=== PATIENT | female | born 2000 | race Caucasian/White ===

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

== ENCOUNTER → 2022-04-26 10:11 | Outpatient (BNVA) | payer MEDICAID, SELFPAY | PROVIDERS: PCP Family Medicine; Visit Provider Nurse Practitioner Women's Health | DX: Z11.3 Encounter for screening for infections with a predominantly sexual mode of transmission (principal); N89.8 Other specified noninflammatory disorders of vagina | CPT/HCPCS: 86592; 86803; 87340; 87491; 87529; 87591; 87661; 87806 ==

== ENCOUNTER → 2022-05-18 10:26 | Outpatient (BNVA) | payer MEDICAID, SELFPAY | PROVIDERS: PCP Family Medicine; Visit Provider Nurse Practitioner Women's Health | DX: Z32.00 Encounter for pregnancy test, result unknown (principal); Z34.90 Encounter for supervision of normal pregnancy, unspecified, unspecified trimester; A60.00 Herpesviral infection of urogenital system, unspecified; R10.9 Unspecified abdominal pain | CPT/HCPCS: 81025; 84315; 87086 ==

== ENCOUNTER → 2022-06-22 15:25 | Outpatient (BNVA) | payer MEDICAID, SELFPAY | PROVIDERS: PCP Family Medicine; Visit Provider Obstetrics & Gynecology | DX: Z34.90 Encounter for supervision of normal pregnancy, unspecified, unspecified trimester (principal); B37.31 Acute candidiasis of vulva and vagina | CPT/HCPCS: 80307; 84315; 87077; 87086; 87184 ==

== ENCOUNTER → 2022-06-23 07:50 | Outpatient (BNVA) | payer MEDICAID, SELFPAY | PROVIDERS: PCP Family Medicine; Visit Provider Obstetrics & Gynecology | DX: Z34.90 Encounter for supervision of normal pregnancy, unspecified, unspecified trimester (principal) | CPT/HCPCS: 84443; 85027; 86762; 86850; 86900 ==

== ENCOUNTER → 2022-09-12 14:00 | Outpatient (BNVA) | payer MEDICAID, SELFPAY | PROVIDERS: PCP Family Medicine; Visit Provider Nurse Practitioner Women's Health | DX: Z34.90 Encounter for supervision of normal pregnancy, unspecified, unspecified trimester (principal) | CPT/HCPCS: 84315; 84443 ==

== ENCOUNTER → 2022-10-03 09:39 | Outpatient (BNVA) | payer MEDICAID, SELFPAY | PROVIDERS: PCP Family Medicine; Visit Provider Obstetrics & Gynecology | DX: Z34.90 Encounter for supervision of normal pregnancy, unspecified, unspecified trimester (principal); Z3A.00 Weeks of gestation of pregnancy not specified | CPT/HCPCS: 84315; 85025; 86850 ==

== ENCOUNTER → 2022-10-06 09:06 | Outpatient (BNVA) | payer MEDICAID, SELFPAY | PROVIDERS: PCP Family Medicine; Visit Provider Obstetrics & Gynecology | DX: Z34.90 Encounter for supervision of normal pregnancy, unspecified, unspecified trimester (principal) | CPT/HCPCS: 82950 ==

== ENCOUNTER → 2022-10-17 08:08 | Outpatient (BNVA) | payer MEDICAID, SELFPAY | PROVIDERS: PCP Family Medicine; Visit Provider Obstetrics & Gynecology | DX: Z34.90 Encounter for supervision of normal pregnancy, unspecified, unspecified trimester (principal) | CPT/HCPCS: 81000 ==

== ENCOUNTER 2022-11-03 09:25 | Outpatient (CLI) | payer MEDICAID, SELFPAY ==
[2022-11-03 09:39] VITALS: BP 129/84; PULSE 97
[2022-11-03 09:54] VITALS: BP 123/74; PULSE 85
[2022-11-03 09:56] VITALS: BMI 23.2
[2022-11-03 10:09] VITALS: BP 118/69; PULSE 81
[2022-11-03 10:12] LABS: Basophils % 0.1 %; Eosinophils # 0.1 10^3/uL (0.0-0.8); Eosinophils % 1.5 %; Hematocrit 32.7 % (37.0-47.0); Hemoglobin 10.4 g/dL (11.5-15.3); Lymphocytes # 1.5 10^3/uL (1.5-6.5); Lymphocytes % 17.7 %; Mean Corpuscular HGB Conc 31.8 g/dL (30.0-36.0); Mean Corpuscular Hemoglobin 29.6 pg (28.0-34.0); Mean Corpuscular Volume 93.2 fl (81-99); Mean Platelet Volume 10.4 fL (7.4-10.4); Monocytes # 0.5 10^3/uL (0.2-0.9); Neutrophils # 6.41 10^3/uL (1.8-8.0); Nucleated Red Blood Cells % 0 %; Platelet Count 260 10^3/cmm (130-400); Red Blood Count 3.51 10^6/uL (4.1-5.3); Red Cell Distribution Width 12.2 % (12.1-15.1); White Blood Count 8.7 10^3/uL (4.5-13.0)
[2022-11-03 10:23] LABS: Add Urine Culture? Yes; Add Urine Microscopic? YES; Bacteria Urine 1+ /hpf; Bilirubin Urine Neg (Negative); Blood Urine Neg (Negative); Glucose Urine UA Norm (Normal); Ketones Urine Negative (Negative); Leukocyte Esterase Urine 2+ (Negative); Nitrate Urine Negative (Negative); Protein Urine Neg (Negative); RBC Urine 15-25 /hpf (0-2); Specific Gravity, Urine 1.005 (1.005-1.030); Urine Appearance SL Hazy (CLEAR); Urine Color Yellow (Yellow); Urobilinogen Urine Neg (Negative); pH Urine 7 (5-7)
[2022-11-03 10:24] VITALS: BP 116/67; PULSE 71
[2022-11-03 10:29] LABS: Alanine Aminotransferase 29 U/L (0-33); Albumin Level 3.6 g/dL (3.5-5.2); Alkaline Phosphatase 81 U/L (35-105); Anion Gap 14.8 (5-19); Aspartate Amino Transferase 26 U/L (0-32); Blood Urea Nitrogen 7 mg/dL (6-20); Calcium 9.2 mg/dL (8.5-10.5); Carbon Dioxide 22 mmol/L (22-29); Chloride 103 mmol/L (98-107); Creatinine Clr Calc Pharmacy 150.4568; Globulin 2.8 g/dL (1.3-4.6); Glomerular Filtration Rate 157.3 mL/min (90-130); Glucose 74 mg/dL (65-115); Osmolality Calculated 279 mOsm/kg (285-295); Potassium 3.8 mmol/L (3.5-5.1); Sodium 136 mmol/L (136-145); Total Bilirubin 0.2 mg/dL (0.15-1.2); Total Protein 6.4 g/dL (6.6-8.7); Uric Acid 3.2 mg/dL (2.4-5.7)
[2022-11-03 10:32] LABS: Urine Creatinine 17 mg/dL (28-217); Urine Protein Random 4 mg/dL
[2022-11-03 10:33] LABS: UPRO/UCREAT Ratio 0.24 mg/mg CR
[2022-11-03 10:39] VITALS: BP 117/65; PULSE 81
[2022-11-03 10:54] VITALS: BP 114/65; PULSE 75
== END 2022-11-03 11:00 | disposition home or self-care (01) ==
LOC: OPOB 09:25 → OBGYN 09:26
PROVIDERS: PCP Family Medicine; Visit Provider Obstetrics & Gynecology
DX: O16.9 Unspecified maternal hypertension, unspecified trimester (principal); Z3A.00 Weeks of gestation of pregnancy not specified
CPT/HCPCS: 36415; 59025; 80053; 81001; 82570; 84156; 84315; 84550; 85025; 87086; 99211

== ENCOUNTER → 2022-11-10 10:57 | Outpatient (BNVA) | payer MEDICAID, SELFPAY | PROVIDERS: PCP Family Medicine; Visit Provider Obstetrics & Gynecology | DX: Z34.80 Encounter for supervision of other normal pregnancy, unspecified trimester (principal) | CPT/HCPCS: 84315; 87086 ==

== ENCOUNTER → 2022-11-16 08:40 | Outpatient (BNVA) | payer MEDICAID, SELFPAY | PROVIDERS: PCP Family Medicine; Visit Provider Obstetrics & Gynecology | DX: Z34.90 Encounter for supervision of normal pregnancy, unspecified, unspecified trimester (principal); R82.90 Unspecified abnormal findings in urine | CPT/HCPCS: 84315; 84443; 85025; 87086 ==

== ENCOUNTER 2024-09-12 00:02 | Observation (INO) | payer MEDICAID, SELFPAY ==
[2024-09-12] VITALS (141 sets, daily range): BP systolic 72–106; BP diastolic 37–63; PULSE 76–122; RESP 15–23; TEMP 36.4–36.9; O2SAT 93–100; BMI 19.5
--- NOTE | 2024-09-12 00:11 | ECG_ITS ---
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 Measurements Intervals [place] Rate: 88 P: 64 MS: 144 QRS: 49 QRSD: 86 T: 89 QT: 395 QTc: 480 Interpretive Statements SINUS RHYTHM LOW QRS VOLTAGE IN PRECORDIAL LEADS [QRS DEFLECTION < 1.0 mV IN CHEST LEADS] POSSIBLE ANTERIOR MYOCARDIAL INFARCTION , PROBABLY OLD [30 ms Q WAVE IN V3/V4, OR R < 0.2 mV IN V4] No previous ECG available for comparison Electronically Signed On 09-12-2024 22:22:24 CDT by Meredith Contreras M.D. [email or web address] [id number]
--- NOTE | 2024-09-12 00:17 | CTR_ITS ---
PROCEDURE INFORMATION: Exam: CT Head Without Contrast Exam date and time: 09/12/2024 1:42 AM Age: 24 years old Clinical indication: Syncope and collapse and other: Possible seizure; Additional info: 1 week seizure, no history of epilepsy TECHNIQUE: Imaging protocol: Computed tomography of the head without contrast. Radiation optimization: All CT scans at this facility use at least one of these dose optimization techniques: automated exposure control; mA and/or kV adjustment per patient size (includes targeted exams where dose is matched to clinical indication); or iterative reconstruction. COMPARISON: CT head wo con* [id number] 10/18/2019 9:50 PM RADIATION DOSE METRICS: Total DLP (mGy-cm): 1134.98 FINDINGS: Brain: No focal hemorrhage or midline shift is identified. Cerebral ventricles: No ventriculomegaly or evidence of acute hydrocephalus. Paranasal sinuses: The partially assessed sinuses are grossly clear. Mastoid air cells: Visualized mastoid air cells are well aerated. Bones: Unremarkable. No acute fracture. Soft tissues: Unremarkable. CT/CT head wo con* [id number] IMPRESSION: No acute intracranial abnormality.
--- NOTE | 2024-09-12 00:17 | XRR_ITS ---
PROCEDURE INFORMATION: Exam: XR Chest Exam date and time: 09/12/2024 12:27 AM Age: 24 years old Clinical indication: Other: Seizure TECHNIQUE: Imaging protocol: Radiologic exam of the chest. Views: 1 view. COMPARISON: CR XR chest 1V portable [id number] 10/18/2019 8:45 PM FINDINGS: Lungs: Unremarkable. No consolidation. Pleural spaces: Unremarkable. No pleural effusion. No pneumothorax. Heart/Mediastinum: Unremarkable. No cardiomegaly. Bones/joints: Unremarkable. XR/XR chest 1V portable [id number] IMPRESSION: No acute findings.
--- NOTE | 2024-09-12 00:19 | ED_ITS ---
HPI - Seizure 2 General: Chief Complaint: Seizure Stated Complaint: possible seizures Time Seen by Provider: 09/12/24 00:03 History of Present Illness: HPI Narrative: Patient presents to the ER via [facility] from home with possible tonic- clonic type seizure. Patient is 1 week patient's states that she was going to the bathroom she began to shake violently and a tonic-clonic type seizure. Patient was found unresponsive with a low blood pressure. This is patient's second and delivery, no complications were noted per EMS. Patient delivered approximately 1 week ago [address] [place]. 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 Seizure History: No Related Data Previous Rx's ?Medication ?Instructions ?Recorded levothyroxine 75 mcg tablet 75 mcg PO DAILY #60 tabs 0 06/24/22 Allergies Allergy/AdvReac Type Severity Reaction Status Date / Time No Known Allergies Allergy Verified 09/12/24 00:14 Review of Systems 2 General: Reports: 10 or more systems reviewed and unremarkable except in HPI and below PFSH ED 2 PFSH: Medical History No pertinent past medical history neghx: htn,dm,thyroid,dvt/pe PCP: Pamela Win Surgical History No pertinent past surgical history Family History Mother Thyroid disease Denies family history of Colon cancer Ovarian cancer Diabetes Heart disease Hypercholesteremia Breast cancer Hypertension Uterine cancer Stroke Social History Substance/Drug Use: never Physical Exam 2 Const: COMMON NORMALS: no acute distress, average body habitus, patient oriented x3, no limitations, healthy appearing, alert and well nourished HENMT: COMMON NORMALS: normocephalic, atraumatic, hearing grossly normal bilaterally, external ears normal, Normal external nose present, moist oral mucous membranes and oropharynx normal HEAD & SCALP: normocephalic and atraumatic NOSE: Normal external nose present EXTERNAL EAR: Yes external ears normal Eye: COMMON NORMALS: Equal, round and reactive pupils present, EOMs intact bilaterally, conjunctivae normal and no scleral icterus CONJUNCTIVA: Yes conjunctivae normal PUPIL: Yes Equal, round and reactive pupils present Neck/C-Spine: COMMON NORMALS: full ROM, no lymphadenopathy, supple, no meningeal signs, no JVD and Thyroid normal THYROID: Thyroid normal Chest: COMMONS NORMALS: normal inspection of the chest and normal palpation of entire chest wall Resp: COMMON NORMALS: normal respiratory effort, No retractions, No use of accessory muscles and clear to auscultation bilaterally AUSCULTATION: clear to auscultation bilaterally Cardio: COMMON NORMALS: no JVD, regular rate, regular rhythm, S1 normal heart sound present, S2 normal heart sound present, No gallops present (Cardio), No clicks present (Cardio), No murmurs present (Cardio) and No rub (Cardio) R ATE: regular rate RHYTHM: regular rhythm HEART SOUNDS: S1 normal heart sound present and S2 normal heart sound present GI: COMMON NORMALS: Normal to inspection, nondistended, normoactive bowel sounds present, Soft to palpation, non-tender, No hepatosplenomegaly present and no masses PALPATION: Yes Soft to palpation and Yes No hepatosplenomegaly present Neuro: COMMON NORMALS: patient oriented x3 SENSORIUM/ORIENTATION: Yes alert MENINGEAL SIGNS: Yes no meningeal signs Course 2 Vital Signs: Vital signs: Vital Signs Temperature 97.5 F L 09/12/24 00:04 Pulse Rate 84 09/12/24 02:18 Respiratory Rate 15 09/12/24 02:18 Blood Pressure 91/50 09/12/24 02:18 Pulse Oximetry 99 09/12/24 02:18 Oxygen Delivery Me thod Nasal Cannula 09/12/24 01:16 Oxygen Flow Rate 2 09/12/24 00:46 MDM - Seizure MDM Narrative Medical decision making narrative: Discussed case with Dr. Brambila OB at [place] before all labs came in, she says sounds more like a vasovagal syncopal type episode due to low blood pressure, she said she would wait till he got all lab work back would probably go ahead and start her on magnesium bolus and maintenance and admit her for observation. Nausea lab work back this case was discussed with Dr. Leung he does not feel it is a eclamptic type seizure may be a vasovagal syncope or a epileptic type seizure. He says he would not give her any more magnesium but he is okay with admitting her for observation. He will consult neurology in the morning. Lab Data 09/12/24 00:30 09/12/24 00:30 Labs: Radiology Impressions Chest X-Ray 09/12/24:17 IMPRESSION: No acute findings. Head CT 09/12/24 00:17 IMPRESSION: No acute intracranial abnormality. Laboratory Results WBC 19.88 10^3/uL (3.29-11.43) H 09/12/24 00:30 RBC 4.96 10^6/uL (3.85-5.65) 09/12/24 00:30 Hgb 16.20 g/dL (11.27-16.99) 09/12/24 00:30 Hct 48.6 % (36-47) H 09/12/24 00:30 MCV 98.0 fl (85-98) 09/12/24 00:30 MCH 32.7 pg (27-33) 09/12/24 00: MCHC 33.3 g/dL (30-55) 09/12/24 00:30 RDW 12.4 % (12.1-15.1) 09/12/24 00:30 Plt Count 261 10^3/cmm (157-399) 09/12/24 00:30 MPV 9.9 fL (7.4-10.4) 09/12/24 00:30 Neut % (Auto) 90.7 % 09/12/24 00:30 Lymph % (Auto) 5.1 % 09/12/24 00:30 [place] % (Auto) 3.2 % 09/12/24 00:30 Eos % (Auto) 0.1 % 09/12/24 00:30 Baso % (Auto) 0.2 % 09/12/24 00:30 Neut # (Auto) 18.03 10^3/uL (1.8-7.7) H 09/12/24 00:30 Lymph # (Auto) 1.0 10^3/uL (0.8-4.8) 09/12/24 00:30 [place] # (Auto) 0.6 10^3/uL (0.2-0.9) 09/12/24 00:30 Eos # (Auto) 0.0 10^3/uL (0.0-0.8) 09/12/24 00:30 Baso # (Auto) 0.0 10^3/uL (0.0-0.1) 09/12/24 00:30 Nucleated RBC % (auto) 0 % 09/12/24 00: Nucleated RBCs # 0.0 /100WBC 09/12/24 00:30 Sodium 139 mmol/L (136-145) 09/12/24 00:30 Potassium 3.6 mmol/L (3.5-5.1) 09/12/24 00:30 Chloride 111 mmol/L (98-107) H 09/12/24 00:30 Carbon Dioxide 14 mmol/L (22-29) L 09/12/24 00:30 Anion Gap 17.6 (5-19) 09/12/24 00:30 BUN 17 mg/dL (6-20) 09/12/24 00:30 Creatinine 1.0 mg/dL (0.5-0.9) H 09/12/24 00:30 GFR Calculation 69.3 mL/min (90-130) L 09/12/24 00: Glucose 129 mg/dL (65-115) H 09/12/24 00:30 Calculated Osmolality 291 mOsm/kg (285-295) 09/12/24 00:30 Lactic Acid 1.6 mmol/L (0.5-2.2) 09/12/24 00:30 Uric Acid 4.6 mg/dL (2.4-5.7) 09/12/24 00:30 Calcium 6.7 mg/dL (8.5-10.5) L 09/12/24 00: Magnesium 1.6 mg/dL (1.7-2.3) L 09/12/24 00:30 Total Bilirubin 0.5 mg/dL (0.15-1.2) 09/12/24 00:30 AST 12 U/L (0-32) 09/12/24 00:30 ALT 9 U/L (0-33) 09/12/24 00:30 Alkaline Phosphatase 76 U/L (35-105) 09/12/24 00:30 Lactate Dehydrogenase 173 U/L (135-214) 09/12/24 00:30 Creatine Kinase 54 U/L (26-192) 09/12/24 00:30 Total Protein 4.6 g/dL (6.6-8.7) L 03/27/25 00:30 Albumin 2.8 g/dL (3.5-5.2) L 09/12/24 00:30 Globulin 1.8 g/dL (1.3-4.6) 09/12/24 00:30 Procalcitonin 0.19 ng/mL (0-0.5) 09/12/24 00:30 TSH 2.29 uIU/mL (0.27-4.20) 09/12/24 00:30 Salicylates < 0.3 mg/dL (3-10) L 09/12/24 00:30 Acetaminophen < 5.0 ug/mL (10-30) L 09/12/24 00:30 Ethyl Alcohol < 10 mg/dL (0-10) 09/12/24 00:30 All radiology interpretation(s) finalized by discharge Discharge Plan Discharge Patient Disposition: Placed in Observation Admit Provider: Cruz Leung Clinical Impression: New onset seizure Coding Level of Care Code ED Industrial Organization Manager for Ángel Gutiérrez
[2024-09-12] MEDS: magnesium sulfate premix 4 GM/100 ML PREMIX IV (00:35)
[2024-09-12] MEDS: sodium chloride 0.9% 1,000 ML 999 ML IV ×2 (00:37→01:26)
[2024-09-12 00:41] LABS: Basophils % 0.2 %; Eosinophils % 0.1 %; Hematocrit 48.6 % (36-47); Lymphocytes % 5.1 %; Mean Corpuscular HGB Conc 33.3 g/dL (30-55); Mean Corpuscular Hemoglobin 32.7 pg (27-33); Mean Platelet Volume 9.9 fL (7.4-10.4); Monocytes # 0.6 10^3/uL (0.2-0.9); Monocytes % 3.2 %; Neutrophils # 18.03 10^3/uL (1.8-7.7); Neutrophils % 90.7 %; Nucleated Red Blood Cells % 0 %; Platelet Count 261 10^3/cmm (157-399); Red Blood Count 4.96 10^6/uL (3.85-5.65); Red Cell Distribution Width 12.4 % (12.1-15.1); White Blood Count 19.88 10^3/uL (3.29-11.43)
--- NOTE | 2024-09-12 00:44 | PC.NURSE ---
Patient stated repeatedly that she felt like her throat was swelling and that hse was having a difficult time breathing. Oxygen remains in high 90s, patient does not appear in respiratory distress at time of assessment. When asked if patient was experiencing anxiety, patient stated, I don't know, maybe. Patient was guided on deep breathing techniques.
--- NOTE | 2024-09-12 00:45 | PC.NURSE ---
Dr Lucio instructed this nurse to run 4g magnesium IV over 20 minutes. Medication running at desired rate.
--- NOTE | 2024-09-12 00:46 | PC.NURSE ---
Patient refused straight cath at this time, stating that she recently had a baby and everything is sensitive. Patient on bed block for urine sample, as ambulating to commode is deemed unsafe at this time.
[2024-09-12 00:58] LABS: Lactic Sepsis W/Reflex 1.6 mmol/L (0.5-2.2)
[2024-09-12 01:09] LABS: Procalcitonin 0.19 ng/mL (0-0.5); Thyroid Stimulating Hormone 2.29 uIU/mL (0.27-4.20)
[2024-09-12 01:21] LABS: Alanine Aminotransferase 9 U/L (0-33); Albumin Level 2.8 g/dL (3.5-5.2); Alkaline Phosphatase 76 U/L (35-105); Anion Gap 17.6 (5-19); Aspartate Amino Transferase 12 U/L (0-32); Blood Urea Nitrogen 17 mg/dL (6-20); Calcium 6.7 mg/dL (8.5-10.5); Carbon Dioxide 14 mmol/L (22-29); Chloride 111 mmol/L (98-107); Creatine Phosphokinase 54 U/L (26-192); Globulin 1.8 g/dL (1.3-4.6); Glomerular Filtration Rate 69.3 mL/min (90-130); Glucose 129 mg/dL (65-115); Magnesium 1.6 mg/dL (1.7-2.3); Osmolality Calculated 291 mOsm/kg (285-295); Potassium 3.6 mmol/L (3.5-5.1); Sodium 139 mmol/L (136-145); Total Bilirubin 0.5 mg/dL (0.15-1.2); Total Protein 4.6 g/dL (6.6-8.7); Uric Acid 4.6 mg/dL (2.4-5.7)
[2024-09-12 01:22] LABS: Acetaminophen < 5.0 ug/mL (10-30); Alcohol Level < 10 mg/dL (0-10); Salicylate < 0.3 mg/dL (3-10)
[2024-09-12 01:23] LABS: Lactate Dehydrogenase 173 U/L (135-214)
[2024-09-12] MEDS: ketorolac 30 mg/mL INJ IVP (01:26)
[2024-09-12] MEDS: ondansetron 2 mg/ML SDV 2 mL 4 MG IVP (01:27)
--- NOTE | 2024-09-12 06:06 | PC.NURSE ---
[id number] physician at [facility]
[2024-09-12] MEDS: predniSONE 20 mg Tablet 40 MG PO (06:53)
[2024-09-12] MEDS: diphenhydrAMINE 50 mg Capsule PO (09:00)
--- NOTE | 2024-09-12 10:15 | PC.NURSE ---
PATIENT UP TO BATHROOM WITH ASSISTANCE. HAD PATIENT JUST SIT UP ON EDGE OF BED SHE STATED SHE WAS ALITTLE DIZZY SO WE JUST SAT FOR AWHILE THEN SHE FELT BETTER AND SHE AMBULATED TO BATHROOM AND VOIDED ABOUT 200MLS AND THEN WE ATTEMPTED TO GET HER RING OFF WITHOUT SUCCESS TOLD HER IF IT GOT ANY TIGHTER THAT WE MADE NEED TO GET IT CUT OFF, WE JUST GAVE HER BENADRYL SO HOPEFULLY WE WILL NOT HAVE TO DO THAT BECAUSE AT THIS TIME PATIENT IS REFUSING TO HAVE RING CUT OFF.
--- NOTE | 2024-09-12 10:29 | CT_ITS ---
WS: [id number] CTA HEAD TECHNIQUE: Contrast enhanced CTA of the head with coronal and sagittal reformatted images and maximum intensity projection (MIP) images. NASCET criteria utilized. CLINICAL INFORMATION: POSSIBLE SEIZURE THIS AM, 1 WEEK . COMPARISON: 09/12/2024 CT DLP: 1898.[address] scans at [facility] use at least one of these dose optimization techniques: automated exposure control; mA and/or kV adjustment per patient size (includes targeted exams where dose is matched to clinical indication); or iterative reconstruction. FINDINGS: No evidence of intracranial hemorrhage or mass effect. Ventricular system and basal cisterns are patent. No hydrocephalus. Normal whipple-white differentiation. Paranasal sinus and mastoid air cells are well aerated. Normal straight sinus and internal cerebral veins. Normal sagittal sinus and vein of [place]. Normal basal veins of Christi. Normal transverse and sigmoid sinuses. CT/CT angio head 87616 IMPRESSION: No evidence of dural sinus thrombosis
--- NOTE | 2024-09-12 11:02 | PC.NURSE ---
RASH AND SWELLING LOOK LIKE IT IS DECREASING. PATIENT STATES THAT SHE FEELS LIKE IT IS GOING DOWN WELL.
--- NOTE | 2024-09-12 11:45 | PC.NURSE ---
THIS COSMETICS DEMONSTRATOR TOOK PATIENT VIA WHEELCHAIR TO CT AROUND 1105 AND RETURNED WITH HER AT 1125. PATIENT DID WELL, NO ISSUES.
--- NOTE | 2024-09-12 16:05 | P.PN_ITS ---
BENZENE WORKER Subjective 2 Subjective: Interval history: 24 y.o. s/p uncomplicated vaginal delivery September 01, 2024 in [place] presented to ER at [facility] this morning with 10-15 minutes of seizure-like activity witnessed by her patient had no headaches, nausea, vomiting, abdominal pain prior to the seizure no headache now BPs have been normal exam and evaluation in the ER, including CT scan of head, have been normal patient has no c/o since admission except for onset of rash all over body states has had past episodes of whole body rash that resolved spontaneously after several hours Phone consultation was carried out by me with Dr. Bacon, neurologist She suggested a CT venogram of the head, which was done and was normal with no evidence of thrombosis Dr. Bacon recommended that the patient can be discharged to home with precautions not to drive and not be alone at home schedule an outpatient EEG and to see her in the office As for body rash, by the time of discharge, patient's rash has mostly resolved with no sequelae. Vitals/I&O/Wt Last Vital Signs Temp 98.4 F 09/12/24 14:00 Pulse 108 H 09/12/24 14:00 Resp 16 09/12/24 14:00 BP 100/62 09/12/24 14:00 Pulse Ox 94 09/12/24 10:53 O2 Del Method Room Air 09/12/24 02:56 O2 Flow Rate 2 09/12/24 00:46 Weight last 48 hrs Weight 107 lb Physical Exam 2 Const: COMMON NORMALS: no acute distress, average body habitus, patient oriented x3, healthy appearing, alert and well nourished Resp: COMMON NORMALS: normal respiratory effort and clear to auscultation bilaterally AUSCULTATION: clear to auscultation bilaterally Cardio: COMMON NORMALS: regular rate and regular rhythm RATE: regular rate RHYTHM: regular rhythm GI: COMMON NORMALS: Normal to inspection, nondistended, normoactive bowel sounds present, Soft to palpation and non-tender PALPATION: Yes Soft to palpation Neuro: COMMON NORMALS: patient oriented x3 SENSORIUM/ORIENTATION: Yes alert Skin: COMMON NORMALS: no rashes or lesions noted and no mottling GENERAL SKIN EXAM: no rashes or lesions noted Data 09/12/24 00:30 09/12/24 00:30 A&P Assessment and plan (1) New onset seizure: see above for plans PDMP PDMP Reviewed: Not Reviewed Attestations 2 Medical Necessity Statement*: patient had episode of seizure, admitted for evaluation Coding Level of Care Code Acute Code for Chg Fwd Diagnoses New onset seizure R56.9 Time Spent (min) 120
--- NOTE | 2024-09-12 16:15 | PM.OBGYDC ---
Discharge Providers RETAIL AGENT Date of Admission: 09/12/24 02:43 Date of Discharge: 09/12/24 Attending Provider at Admission: Cruz Leung MD Attending Provider at Discharge: Cruz Leung MD Consults: Neurology Primary Care Provider: Shanae Arenas MD Diagnoses at Discharge Discharge Diagnosis (1) New onset seizure: Details from hospital stay: 24 y.o.s/p uncomplicated vaginal delivery September 01, 2024 in [place] presented to ER at [facility] this morning with 10-15 minutes of seizure-like activity witnessed by her patient had no headaches, nausea, vomiting, abdominal pain prior to the seizure no headache now BPs have been normal exam and evaluation in the ER, including CT scan of head, have been normal patient has no c/o since admission except for onset of rash all over body states has had past episodes of whole body rash that resolved spontaneously after several hours Phone consultation was carried out by me with Dr. Bacon, neurologist She suggested a CT venogram of the head, which was done and was normal with no evidence of thrombosis Dr. Bacon recommended that the patient can be discharged to home with precautions not to drive and not be alone at home schedule an outpatient EEG and to see her in the office As for body rash, by the time of discharge, patient's rash has mostly resolved with no sequelae. Status: Acute Reason for Visit Reason for Visit: possible seizures Brief History: 24 y.o.s/p uncomplicated vaginal delivery September 01, 2024 in [place] presented to ER at [facility] this morning with 10-15 minutes of seizure-like activity witnessed by her Hospital Course Hospital Course 24 y.o.s/p uncomplicated vaginal delivery September 01, 2024 in [place] presented to ER at [facility] this morning with 10-15 minutes of seizure-like activity witnessed by her patient had no headaches, nausea, vomiting, abdominal pain prior to the seizure no headache now BPs have been normal exam and evaluation in the ER, including CT scan of head, have been normal patient has no c/o since admission except for onset of rash all over body states has had past episodes of whole body rash that resolved spontaneously after several hours Phone consultation was carried out by me with Dr. Bacon, neurologist She suggested a CT venogram of the head, which was done and was normal with no evidence of thrombosis Dr. Bacon recommended that the patient can be discharged to home with precautions not to drive and not be alone at home schedule an outpatient EEG and to see her in the office As for body rash, by the time of discharge, patient's rash has mostly resolved with no sequelae. Physical Exam Const: COMMON NORMALS: no acute distress, average body habitus, patient oriented x3, no limitations, healthy appearing, alert and well nourished Resp: COMMON NORMALS: normal respiratory effort, No use of accessory muscles and clear to auscultation bilaterally AUSCULTATION: clear to auscultation bilaterally Cardio: COMMON NORMALS: regular rate and regular rhythm RATE: regular rate RHYTHM: regular rhythm GI: COMMON NORMALS: Normal to inspection, nondistended, normoactive bowel sounds present, Soft to palpation and non-tender PALPATION: Yes Soft to palpation Neuro: COMMON NORMALS: patient oriented x3 SENSORIUM/ORIENTATION: Yes alert Skin: COMMON NORMALS: no rashes or lesions noted GENERAL SKIN EXAM: no rashes or lesions noted History History History 1 Term Miscarriages/Ectopic Living Children Discharge Data Studies Completed and Pending Completed Studies During Hospitalization Category Date Time Status CT angio head [id number] Stat Cat Scan 09/12/24 10:[address] head wo con* [id number] Stat Cat Scan 09/12/24 00:17 Completed XR chest 1V portable [id number] Stat Exams 09/12/24 00:17 Completed Radiology Impressions Chest X-Ray 09/12/24 00:17 IMPRESSION: No acute findings. Head CT 09/12/24 00:17 IMPRESSION: No acute intracranial abnormality. Head CTA 09/12/24 10:29 IMPRESSION: No evidence of dural sinus thrombosis Laboratory Results WBC 19.88 10^3/uL (3.29-11.43) H 09/12/24 00:30 RBC 4.96 10^6/uL (3.85-5.65) 09/12/24 00:30 Hgb 16.20 g/dL (11.27-16.99) 09/12/24 00:30 Hct 48.6 % (36-47) H 09/12/24 00:30 MCV 98.0 fl (85-98) 09/12/24 00:30 MCH 32.7 pg (27-33) 09/12/24 00:30 MCHC 33.3 g/dL (30-55) 09/12/24 00:30 RDW 12.4 % (12.1-15.1) 09/12/24 00:30 Plt Count 261 10^3/cmm (157-399) 09/12/24 00:30 MPV 9.9 fL (7.4-10.4) 09/12/24 00:30 Neut % (Auto) 90.7 % 09/12/24 00:30 Lymph % (Auto) 5.1 % 09/12/24 00:30 Kaufman % (Auto) 3.2 % 09/12/24 00:30 Eos % (Auto) 0.1 % 09/12/24 00:30 Baso % (Auto) 0.2 % 09/12/24 00:30 Neut # (Auto) 18.03 10^3/uL (1.8-7.7) H 09/12/24 00:30 Lymph # (Auto) 1.0 10^3/uL (0.8-4.8) 09/12/24 00:30 Kaufman # (Auto) 0.6 10^3/uL (0.2-0.9) 09/12/24 00:30 Eos # (Auto) 0.0 10^3/uL (0.0-0.8) 09/12/24 00:30 Baso # (Auto) 0.0 10^3/uL (0.0-0.1) 09/12/24 00:30 Nucleated RBC % (auto) 0 % 09/12/24 00: Nucleated RBCs # 0.0 /100WBC 09/12/24 00:30 Sodium 139 mmol/L (136-145) 09/12/24 00:30 Potassium 3.6 mmol/L (3.5-5.1) 09/12/24 00:30 Chloride 111 mmol/L (98-107) H 09/12/24 00:30 Carbon Dioxide 14 mmol/L (22-29) L 09/12/24 00:30 Anion Gap 17.6 (5-19) 09/12/24 00:30 BUN 17 mg/dL (6-20) 09/12/24 00:30 Creatinine 1.0 mg/dL (0.5-0.9) H 09/12/24 00:30 GFR Calculation 69.3 mL/min (90-130) L 09/12/24 00:30 Glucose 129 mg/dL (65-115) H 09/12/24 00:30 Calculated Osmolality 291 mOsm/kg (285-295) 09/12/24 00:30 Lactic Acid 1.6 mmol/L (0.5-2.2) 09/12/24 00:30 Uric Acid 4.6 mg/dL (2.4-5.7) 09/12/24 00:30 Calcium 6.7 mg/dL (8.5-10.5) L 09/12/24 00:30 Magnesium 1.6 mg/dL (1.7-2.3) L 09/12/24 00:30 Total Bilirubin 0.5 mg/dL (0.15-1.2) 09/12/24 00:30 AST 12 U/L (0-32) 09/12/24 00:30 ALT 9 U/L (0-33) 09/12/24 00:30 Alkaline Phosphatase 76 U/L (35-105) 09/12/24 00:30 Lactate Dehydrogenase 173 U/L (135-214) 09/12/24 00:30 Creatine Kinase 54 U/L (26-192) 09/12/24 00:30 Total Protein 4.6 g/dL (6.6-8.7) L 09/12/24 00:30 Albumin 2.8 g/dL (3.5-5.2) L 09/12/24 00:30 Globulin 1.8 g/dL (1.3-4.6) 09/12/24 00:30 Procalcitonin 0.19 ng/mL (0-0.5) 09/12/24 00:30 TSH 2.29 uIU/mL (0.27-4.20) 09/12/24 00:30 Salicylates < 0.3 mg/dL (3-10) L 09/12/24 00:30 Acetaminophen < 5.0 ug/mL (10-30) L 09/12/24 00:30 Ethyl Alcohol < 10 mg/dL (0-10) 09/12/24 00:30 Vitals Last Vital Signs Temp 98.4 F 09/12/24 14:00 Pulse 108 H 09/12/24 14:00 Resp 16 09/12/24 14:00 BP 100/62 09/12/24 14:00 Pulse Ox 94 09/12/24 10:53 O2 Del Method Room Air 09/12/24 02:56 O2 Flow Rate 2 09/12/24 00:46 Results Labs OB ([facility]): Hct 48.6 % (36-47) H 09/12/24 Hgb 16.20 g/dL (11.27-16.99) 09/12/24 Plt Count 261 10^3/cmm (157-399) 09/12/24 TSH 2.29 uIU/mL (0.27-4.20) 09/12/24 Uric Acid 4.6 mg/dL (2.4-5.7) 09/12/24 Discharge Plan Discharge Patient Disposition: Home Condition: Stable Prescriptions: New prednisone 10 mg tablet 10 mg PO DIRECTED Qty: 10 0RF Rx Instructions: 2 tabs x two days, then one tab x one day, then stop Benadryl Allergy 50 mg tablet 50 mg PO Q8H PRN (Reason: rash) Qty: 30 0RF Continued levothyroxine 75 mcg tablet 75 mcg PO DAILY Qty: 60 8RF Discharge Orders: Discharge Order (Routine); Ordered 09/12/24 Ordered By: Cruz Leung Referrals: Nancy Bacon MD [Physician] - (DR. LOMELI OFFICE CALLED PATIENT AND SET UP APPOINTMENTS FOR EEG AND FOLLOW UP WITH DR BACON.) Blas Malhotra Jr, MD [Referring] - (TOLD PATIENT TO CALL DR. MALHOTRA'S OFFICE AND MAKE APPOINTMENT FOR MONDAY OR MONDAY OF NEXT WEEK. ) Discharge Diet: Usual diet Discharge Activity: Increase activity as tolerated Patient Instructions: New-Onset Seizure in Adults (DC), Opioid Safety, Pain Management Activity Restrictions/Additional Instructions: NO DRIVING UNTIL CLEARED BY HER DOCTOR. see own OB next Monday for followup Discharge Attestations RETAIL AGENT Time Spent in Discharge Care*: greater than 30 min Coding Level of Care Code Acute Code for Chg Fwd Diagnoses New onset seizure R56.9
== END 2024-09-12 14:30 | disposition home or self-care (01) ==
LOC: ER 02:38 → OBGYN 02:44
PROVIDERS: Admitting Provider Obstetrics & Gynecology; Emergency Provider Emergency Medicine; PCP Family Medicine; Visit Provider Obstetrics & Gynecology
DX: R56.9 Unspecified convulsions (principal); R21 Rash and other nonspecific skin eruption
CPT/HCPCS: 70450; 70496; 71045; 80053; 80307; 82550; 83605; 83615; 83735; 84145; 84443; 84550; 85025; 93005; 96365; 96366; 96375; 99285; G0378; J1885; J2405; J3475; J7030; J7512; Q0163

== ENCOUNTER 2025-01-14 15:06 | Outpatient (CLI) | payer MEDICAID, SELFPAY ==
--- NOTE | 2025-01-14 15:24 | XR_ITS ---
WS: [id number] Lumbar spine, 3 views, 01/14/2025 Clinical Data: BACK PAIN Comparison: None. Findings: No compression fractures or subluxation is seen. No disc space narrowing is seen. The transverse processes and SI joints are normal. XR/XR lumbar spine 2-3V* [id number] Impression: Negative lumbar spine.
== END 2025-01-14 15:07 | disposition home or self-care (01) ==
LOC: RAD 15:10
PROVIDERS: PCP Family Medicine; Visit Provider Nurse Practitioner Family
DX: M54.9 Dorsalgia, unspecified (principal)
CPT/HCPCS: 72100

== ENCOUNTER 2025-02-06 15:22 | Outpatient (CLI) | payer MEDICAID, SELFPAY ==
--- NOTE | 2025-02-06 15:28 | XRR_ITS ---
PROCEDURE INFORMATION: Exam: XR Right Wrist Exam date and time: 02/06/2025 3:56 PM Age: 24 years old Clinical indication: Injury or trauma; Fall; Blunt trauma (contusions or hematomas); Wrist; Right; Additional info: R wrist pain TECHNIQUE: Imaging protocol: Radiologic exam of the right wrist. Views: 1 or 2 views. COMPARISON: No relevant prior studies available. FINDINGS: Bones/joints: No fracture or dislocation is seen. Osseous structures and joint spaces about the right wrist appear unremarkable. No abnormal soft tissue calcification is seen at the wrist joint. Soft tissues: Unremarkable. XR/XR wrist RT 2V [id number] IMPRESSION: No fracture or malalignment.
== END 2025-02-06 15:23 | disposition home or self-care (01) ==
LOC: RAD 15:24
PROVIDERS: PCP Family Medicine; Visit Provider Nurse Practitioner Family
DX: M25.531 Pain in right wrist (principal)
CPT/HCPCS: 73100